=== PATIENT | male | born 1980 | race Caucasian/White ===

== ENCOUNTER 2017-11-06 12:45 | Inpatient (IN) | payer OTHER ==
[2017-11-06 14:31] VITALS: BMI 24.1
--- NOTE | 2017-11-06 19:26 | HP ---
COWS - Scale Resting Pulse: 0= OR 80 or Below Sweatin=Flushed/Facial Moisture Restless Observation: 3= Extraneous Movement Pupil Size: 2= Moderately Dilated Bone or Joint Aches: 4=Acute Joint/Muscle Pain Runny Nose/ Eye Tearin= None GI Upset > 30mins: 1= Stomach Cramp Tremor Observation: 0= None Yawning Observation: 0= None Anxiety or Irritability: 2=Irritable/Anxious Goose Flesh Skin: 0=Smooth Skin COWS Score: 14 CIWA Score - CIWA Score Nausea/Vomitin-No Nausea/No Vomiting Muscle Tremors: 3 Anxiety: 5 Agitation: 5 Paroxysmal Sweats: 1-Minimal Palms Moist Orientation: 0-Oriented Tacttile Disturbances: 0-None Auditory Disturbances: 0-None Visual Disturbances: 0-None Headache: 0-None Present CIWA-Ar Total Score: 14 Admission ROS S - [facility] Chief Complaint: HEROIN WITHDRAWAL SX Allergies/Adverse Reactions: Allergies Allergy/AdvReac Type Severity Reaction Status Date / Time No Known Allergies Allergy Verified 11/06/17 19:03 History of Present Illness: 37 Y/O H/MALE WITH A HX OF HEROIN AND XANAX DEPENDENCE SEEKING DETOX TX. TOXICOLOGY NEGATIVE FOR XANAX. [place] 0.018 BUT PT REPORTS HE DOES NOT DRINK AND IS SURPRISED AT [place] RESULT. PT HAS PREVIOUS TREATMENT EPISODES. PATIENT WAS ON [facility] TREATMENT PROGRAM BUT WAS DISCHARGED IN DUE TO NON COMPLIANCE. LAST RX POSTING WAS IN MARCH 2017. Exam Limitations: No Limitations, Clinical Condition - Ebola screening Have you traveled outside of the country in the last 21 days: No Have you had contact with anyone from an Ebola affected area: No Have you been sick,other than usual withdrawal symptoms: No Do you have a fever: No - Review of Systems Constitutional: Chills, Loss of Appetite, Night Sweats, Unintentional Wgt. Loss , Unexplained wgt Loss EENT: reports: Blurred Vision (DUE TO DRUG USE), Tearing, Nose Congestion, Dental Problems (CAVITIES/BROKEN FRONTAL BOTTOM/UPPER TEETH) Respiratory: reports: No Symptoms reported Cardiac: reports: Lightheadedness GI: reports: Constipated, Diarrhea, Nausea, Poor Appetite, Vomiting, Indigestion (HX GERD-PRILOSEC IN THE PAST.) : reports: No Symptoms Reported Musculoskeletal: reports: Back Pain, Joint Pain (ANKLES), Muscle Pain Integumentary: reports: Bruising (LEFT ELBOW DUE TO FALL/ BOTH INNER ELBOWS IVD INJ SITES) Neuro: reports: Headache, Numbness, Tingling, Unsteady Gait (IN THE PAST), Dizziness Endocrine: reports: No Symptoms Reported Hematology: reports: No Symptoms Reported Psychiatric: reports: Orientated x3, Anxious, Depressed Other Systems: Reviewed and Negative Patient History - Patient Medical History Hx Anemia: No Hx Asthma: No Hx Chronic Obstructive Pulmonary Disease (COPD): No Hx Cancer: No Hx Cardiac Disorders: No Hx Congestive Heart Failure: No Hx Hypertension: No Hx Hypercholesterolemia: No Hx Pacemaker: No HX Cerebrovascular Accident: No Hx Seizures: No Hx Dementia: No Hx Diabetes: No Hx Gastrointestinal Disorders: No Hx Liver Disease: No Hx Genitourinary Disorders: No Hx Sexually Transmitted Disorders: No Hx Renal Disease (ESRD): No Hx Thyroid Disease: No Hx Human Immunodeficiency Virus (HIV): Yes (since 2009; NO CURRENT MED) Hx Hepatitis C: Yes (since 2009) Hx Depression: No Hx Suicide Attempt: No (DENIES S/I) Hx Bipolar Disorder: No Hx Schizophrenia: No Other Medical History: I.D CLINIC: DR. CLAROS @ [address] - Patient Surgical History Past Surgical History: No Hx Neurologic Surgery: No Hx Cataract Extraction: No Hx Cardiac Surgery: No Hx Lung Surgery: No Hx Breast Surgery: No Hx Breast Biopsy: No Hx Abdominal Surgery: No Hx Appendectomy: No Hx Cholecystectomy: No Hx Genitourinary Surgery: No Hx Orthopedic Surgery: No Anesthesia Reaction: No - PPD History Previous Implant?: Yes (INH = vit b6 treatment in the past.) Documented Results: Positive w/o proof Implanted On Prior [facility] Admission?: No PPD to be Administered?: No - Reproductive History Patient is a Female of Child Bearing Age (11 -55 yrs old): No (male) - Smoking Cessation Smoking history: Current every day smoker Have you smoked in the past 12 months: Yes Aproximately how many cigarettes per day: 10 Hx Chewing Tobacco Use: No Initiated information on smoking cessation: Yes 'Breaking Loose' booklet given: 11/06/17 - Substance & Tx. History Hx Alcohol Use: No Hx Substance Use: Yes (heroin/xanax/marijuana/cocaine) Substance Use Type: Cocaine, Heroin, Marijuana - Substances Abused Alprazolam (Xanax) Route: Oral Frequency: Daily Amount used: 2/2MG Age of first use: 25 Date of Last Use: 11/06/17 Heroin Route: Injection Frequency: Daily Amount used: 5-8 BAGS Age of first use: 22 Date of Last Use: 11/06/17 Marijuana/Hashish Route: Smoking Frequency: Daily Amount used: $10 Age of first use: 14 Date of Last Use: 11/05/17 Family Disease History - Family Disease History Family Disease History: Diabetes: Grandparent (GM-DM;GF- FROM CANCER), CA: Grandparent, Other: Mother (HIV+ AND DEPRESSION- ) Admission Physical Exam [facility] - Vital Signs Vital Signs: Vital Signs - 24 hr 11/06/17 14:24 Temperature 97.3 F L Pulse Rate 59 L Respiratory 18 Rate Blood Pressure 107/71 - Physical General Appearance: Yes: Moderate Distress, Irritable, Anxious HEENTM: Yes: EOMI, Normocephalic, [place] Respiratory: Yes: Chest Non-Tender, Lungs Clear, Normal Breath Sounds, No Respiratory Distress Neck: Yes: Supple, Trachea in good position Breast: Yes: Breast Exam Deferred Cardiology: Yes: Regular Rhythm, Regular Rate, S1, S2 Abdominal: Yes: Normal Bowel Sounds, Non Tender, Soft Genitourinary: Yes: Other (N/C) Back: Yes: Within Normal Limits Musculoskeletal: Yes: full range of Motion, Gait Steady Extremities: Yes: Normal Range of Motion, Non-Tender Neurological: Yes: jewel hole cornerer II-XII NML intact, Fully Oriented, Alert, Motor Strength 5/5 Integumentary: Yes: Dry, Warm, Track [place] (BOTH ANTECUBITAL SPACES-HARDENED IVD INJECTION SITE WITH SLIGHT REDNESS.) Lymphatic: Yes: Within Normal Limits - Diagnostic (1) Opioid dependence with withdrawal Status: Acute (2) HIV (human immunodeficiency virus infection) Status: Chronic (3) History of hepatitis C Status: Chronic (4) Cannabis dependence, uncomplicated Status: Chronic (5) Cellulitis Status: Acute Qualifiers: Site of cellulitis of extremity: upper extremity Cleared for Admission [facility] - Detox or Rehab [facility] Level of Care: Medically Managed Detox Regimen/Protocol: Methadone S Breath Alcohol Content Breath Alcohol Content: 0.018 Urine Drug Screen - Results Drug Screen Negative: No Urine Drug Screen Results: THC-Marijuana, LIZABETH-Cocaine, OPI-Opiates, OXY- Oxycodone
[2017-11-06] MEDS ORDERED: LOPERAMIDE HCL 2 MG CAPSULE PO PRN (19:58)
[2017-11-06] MEDS ORDERED: MAG HYDROX/AL HYDROX/SIMETH 30 ML UNIT-DOSE CUP PO PRN (19:58)
[2017-11-06] MEDS ORDERED: ACETAMINOPHEN 325 MG TABLET (FP) PO PRN (19:58)
[2017-11-06] MEDS ORDERED: MENTHOL/PHENOL 1 EACH UD MM PRN (19:58)
[2017-11-06] MEDS ORDERED: P-EPHED 60MG/TRIPROLIDI 2.5MG TABLET PO PRN (19:58)
[2017-11-06] MEDS ORDERED: hydrOXYzine PAMOATE 50 MG CAPSULE (FP) PO PRN (19:58)
[2017-11-06] MEDS ORDERED: NICOTINE POLACRILEX 2 MG GUM BC PRN (19:58)
[2017-11-06] MEDS ORDERED: guaiFENesin/D-METHORPHAN HB 10 ML UNIT-DOSE CUPS PO PRN (19:58)
[2017-11-06] MEDS ORDERED: MAGNESIUM HYDROX 2400MG/30ML ORAL SUSPENSION 30 ML CUP PO PRN (19:58)
[2017-11-06] MEDS ORDERED: MAGNESIUM CITRATE 300 ML BOTTLE PO PRN (19:58)
[2017-11-06] MEDS ORDERED: IBUPROFEN 400 MG TABLET (FP) PO PRN (19:58)
[2017-11-06] MEDS ORDERED: METHADONE HCL 10 MG TABLET (FOR DETOX USE ONLY) PO ONE ×2 (21:00→23:00)
[2017-11-06] MEDS: diazePAM 5 MG TABLET PO PRN (21:41)
[2017-11-06] MEDS: NICOTINE 14 MG/24 HOURS TOPICAL PATCH TD SCH (21:41)
[2017-11-06] MEDS: THIAMINE HCL 100 MG TABLET (FP) PO SCH (21:43)
[2017-11-06] MEDS ORDERED: MELATONIN 5 MG TABLETS PO PRN (22:00)
[2017-11-07] MEDS ORDERED: METHADONE HCL 10 MG TABLET (FOR DETOX USE ONLY) PO ONE (10:00)
[2017-11-07 10:33] LABS: URINE APPEARANCE TURBID; URINE BILIRUBIN NEGATIVE (<2.0 mg/dL); URINE COLOR YELLOW; URINE GLUCOSE (UA) NEGATIVE (NEGATIVE); URINE KETONE TRACE (NEGATIVE); URINE LEUK ESTERASE NEGATIVE (NEGATIVE); URINE NITRITE NEGATIVE (NEGATIVE); URINE PROTEIN NEGATIVE (NEGATIVE); URINE UROBILINOGEN NEGATIVE mg/dL (0.2-1.0)
[2017-11-07 10:36] LABS: HEMATOCRIT 40.7 % (35.4-49); HEMOGLOBIN 13.8 GM/dL (11.7-16.9); MCH 29.6 pg (25.7-33.7); MEAN CELL VOLUME 87.1 fl (80-96); MEAN PLT VOLUME 8.6 fl (7.5-11.1); PLATELET COUNT 272 K/MM3 (134-434); RBC 4.67 M/mm3 (4.00-5.60); WHITE BLOOD COUNT 8.9 K/mm3 (4.0-10.0)
[2017-11-07] MEDS: BACITRACIN 0.9 GM PACKET TP SCH ×2 (10:43→21:05)
[2017-11-07] MEDS: PRENATAL VITAMINS W/ FOLIC ACID TABLET (FP) PO SCH (10:43)
[2017-11-07] MEDS: NICOTINE 14 MG/24 HOURS TOPICAL PATCH TD SCH (10:44)
[2017-11-07] MEDS: diazePAM 5 MG TABLET PO PRN ×2 (10:47→21:05)
[2017-11-07 11:17] LABS: CHLORIDE 105 mmol/L (98-107); POTASSIUM 4.3 mmol/L (3.5-5.1); SODIUM 140 mmol/L (136-145)
[2017-11-07 11:24] LABS: ALBUMIN 3.3 g/dl (3.4-5.0); ALK PHOS 216 U/L (45-117); ANION GAP 7 (8-16); BILIRUBIN,TOTAL 0.5 mg/dL (0.2-1.0); BLOOD UREA NITROGEN 10 mg/dL (7-18); CALCIUM 8.4 mg/dL (8.5-10.1); CO2 28 mmol/L (21-32); CREATININE 0.6 mg/dL (0.7-1.3); GLUCOSE,RANDOM 81 mg/dL (74-106); SGOT/AST 60 U/L (15-37); SGPT/ALT 68 U/L (12-78); TOT PROT 6.4 g/dl (6.4-8.2)
[2017-11-07 11:31] LABS: SICKLE CELL SCREEN NEGATIVE (NEGATIVE)
[2017-11-07] MEDS ORDERED: SULFAMETHOXAZOLE/TRIMETHOPRIM 800MG/160MG D.S. TABLET PO ONE (12:45)
--- NOTE | 2017-11-07 14:45 | PN ---
S CIWA - CIWA Score Nausea/Vomitin-No Nausea/No Vomiting Muscle Tremors: None Anxiety: 4-Mod. Anxious/Guarded Agitation: 2 Paroxysmal Sweats: 3 Orientation: 0-Oriented Tacttile Disturbances: 3-Moderate Itch/Numb/Burn Auditory Disturbances: 0-None Visual Disturbances: 3-Moderate Sensitivity Headache: 0-None Present CIWA-Ar Total Score: 15 BHS COWS - Scale Resting Pulse: 1= [place] 81-100 Sweatin= Chills/Flushing Restless Observation: 1= Difficult to Sit Still Pupil Size: 0= Normal to Room Light Bone or Joint Aches: 2= Severe Diffuse Aches Runny Nose/ Eye Tearin= Nasal Congestion GI Upset > 30mins: 0= None Tremor Observation of Outstretched Hands: 0= None Yawning Observation: 2= >3x During Session Anxiety or Irritability: 2=Irritable/Anxious Goose Flesh Skin: 3=Piloerection COWS Score: 13 S Progress Note (SOAP) Subjective: Body Aches, Sweating, Fatigue. Objective: PATIENT A & O X 3, OBSERVED AMBULATING ON UNIT. NO ACUTE DISTRESS. 11/07/17 14:46 Vital Signs Temperature 98.6 F 11/07/17 13:25 Pulse Rate 86 11/07/17 13:25 Respiratory Rate 16 11/07/17 13:25 Blood Pressure 149/89 11/07/17 13:25 O2 Sat by Pulse Oximetry (%) Laboratory Tests 11/07/17 11/07/17 11/07/17 08:00 08:00 08:00 WBC 8.9 RBC 4.67 Hgb 13.8 Hct 40.7 MCV 87.1 MCH 29.6 MCHC 34.0 RDW 14.0 Plt Count 272 MPV 8.6 Sickle Cell Screen Negative Sodium 140 Potassium 4.3 Chloride 105 Carbon Dioxide 28 Anion Gap 7 L BUN 10 Creatinine 0.6 L Creat Clearance w eGFR > 60 Random Glucose 81 D Calcium 8.4 L Total Bilirubin 0.5 AST 60 H D ALT 68 D Alkaline Phosphatase 216 H Total Protein 6.4 Albumin 3.3 L Urine Color Urine Appearance Urine pH Ur Specific [place] Urine Protein Urine Glucose (UA) Urine Ketones Urine Blood Urine Nitrite Urine Bilirubin Urine Urobilinogen Ur Leukocyte Esterase RPR Titer Nonreactive 11/07/17 08:30 WBC RBC Hgb Hct MCV MCH MCHC RDW Plt Count MPV Sickle Cell Screen Sodium Potassium Chloride Carbon Dioxide Anion Gap BUN Creatinine Creat Clearance w eGFR Random Glucose Calcium Total Bilirubin AST ALT Alkaline Phosphatase Total Protein Albumin Urine Color Yellow Urine Appearance Turbid Urine pH 5.0 Ur Specific [place] 1.029 Urine Protein Negative Urine Glucose (UA) Negative Urine Ketones Trace H Urine Blood Negative Urine Nitrite Negative Urine Bilirubin Negative Urine Urobilinogen Negative Ur Leukocyte Esterase Negative RPR Titer LABS NOTED. Assessment: 11/07/17 14:47 WITHDRAWAL SYMPTOMS. Plan: CONTINUE DETOX. INCREASE DAILY PO FLUID INTAKE. REPEAT ALKALINE PHOSPHATASE ON 11/09/2017 FOR ELEVATED ADMISSION LEVEL.
--- NOTE | 2017-11-07 17:26 | CONSULT ---
[facility] Psychiatric Consult - Data Date of interview: 11/07/17 Admission source: [facility] Identifying data: Readmission to [facility] for this 37 y/o male seeking detox treatment on for heroin,cannabis,xanax and cocaine dependence.Patient is single,a father of one,domiciled,unemployed and deprived of income. Substance Abuse History: Confirmed by the patient in this session.Smoking history: Current every day smoker. Have you smoked in the past 12 months: Yes. Aproximately how many cigarettes per day: 10. Hx Chewing Tobacco Use: No. Initiated information on smoking cessation: Yes. 'Breaking Loose' booklet given : 11/06/17. - Substance & Tx. History. Hx Alcohol Use: No. Hx Substance Use: Yes (heroin/xanax/marijuana/cocaine). Substance Use Type: Cocaine, Heroin, Marijuana. - Substances Abused. Alprazolam (Xanax). Route: Oral. Frequency: Daily. Amount used: 2/2MG. Age of first use: 25. Date of Last Use : 11/06/17. Heroin. Route: Injection. Frequency: Daily. Amount used: 5-8 BAGS. Age of first use: 22. Date of Last Use: 11/06/17. Marijuana/ Hashish. Route: Smoking. Frequency: Daily. Amount used: $10. Age of first use: 14. Date of Last Use: 11/05/17 Medical History: HIV infection since 2009,hepatitis C and past treatment with INH + B6 (positive PPD). Psychiatric History: Patient denies. Physical/Sexual Abuse/Trauma History: Declines to discuss this domain. Additional Comment: Urine Drug Screen Results: THC-Marijuana, LIZABETH-Cocaine, OPI- Opiates, OXY-Oxycodone.Noted. Mental Status Exam - Mental Status Exam Alert and Oriented to: Time, Place, Person Cognitive Function: Grossly Intact Patient Appearance: Unkempt, Disheveled Mood: Hostile, Nervous, Withdrawn, Irritable Affect: Mood Congruent Patient Behavior: Fatigued, Guarded Speech Pattern: Clear Voice Loudness: Normal Thought Process: Goal Oriented Thought Disorder: Not Present Hallucinations: Denies Suicidal Ideation: Denies Homicidal Ideation: Denies Insight/Judgement: Poor Sleep: Fair Appetite: Good Muscle strength/Tone: Normal Gait/Station: Normal Psychiatric Findings - Problem List ([place] 1, 2,3) (1) Opioid dependence with withdrawal Current Visit: Yes Status: Acute (2) Cannabis dependence, uncomplicated Current Visit: Yes Status: Acute (3) Cocaine dependence Current Visit: Yes Status: Acute (4) Nicotine dependence Current Visit: Yes Status: Acute (5) Substance induced mood disorder Current Visit: Yes Status: Acute - Initial Treatment Plan Initial Treatment Plan: Psychoeducation.Sleep hygiene.Detoxification.Patient reports sleeping fairly well on melatonin at bedtime.Made aware of side effects/ benefits.Agrees to careplan.Observation.
--- NOTE | 2017-11-07 19:00 | EKG ---
Test Reason : Blood Pressure : / mmHG Vent. Rate : 052 BPM Atrial Rate : 052 BPM P-R Int : 174 ms QRS Dur : 092 ms QT Int : 416 ms P-R-T Axes : 036 077 055 degrees QTc Int : 386 ms SINUS BRADYCARDIA OTHERWISE NORMAL ECG NO PREVIOUS ECGS AVAILABLE Confirmed by MD JOSE, LOKI ([id number]) on 11/07/2017 6:59:53 PM Referred By: Confirmed By:LOKI GARCIA MD
[2017-11-07] MEDS: SULFAMETHOXAZOLE/TRIMETHOPRIM 800MG/160MG D.S. TABLET PO SCH (21:05)
[2017-11-07] MEDS: THIAMINE HCL 100 MG TABLET (FP) PO SCH (21:06)
[2017-11-07] MEDS ORDERED: SULFAMETHOXAZOLE/TRIMETHOPRIM 800MG/160MG D.S. TABLET PO SCH (22:00)
[2017-11-08] MEDS ORDERED: METHADONE HCL 5 MG TABLET (FOR DETOX USE ONLY) PO ONE (10:00)
[2017-11-08] MEDS: SULFAMETHOXAZOLE/TRIMETHOPRIM 800MG/160MG D.S. TABLET PO SCH ×2 (10:09→22:40)
[2017-11-08] MEDS: BACITRACIN 0.9 GM PACKET TP SCH ×2 (10:09→22:39)
[2017-11-08] MEDS: PRENATAL VITAMINS W/ FOLIC ACID TABLET (FP) PO SCH (10:09)
[2017-11-08] MEDS: NICOTINE 14 MG/24 HOURS TOPICAL PATCH TD SCH (10:10)
[2017-11-08] MEDS: diazePAM 5 MG TABLET PO PRN ×3 (10:13→20:31)
--- NOTE | 2017-11-08 13:24 | PN ---
BHS COWS - Scale Resting Pulse: 0= IN 80 or Below Sweatin= Chills/Flushing Restless Observation: 3= Extraneous Movement Pupil Size: 1= Pupils >than Normal Bone or Joint Aches: 2= Severe Diffuse Aches Runny Nose/ Eye Tearin= Runny Nose/Eyes GI Upset > 30mins: 2= Nausea/Diarrhea Tremor Observation of Outstretched Hands: 2= Slight Tremor Visible Yawning Observation: 1= 1-2x During Session Anxiety or Irritability: 2=Irritable/Anxious Goose Flesh Skin: 0=Smooth Skin COWS Score: 16 BHS Progress Note (SOAP) Subjective: Nausea, poor appetite, body ache, feels sad (denies SI, HI) Objective: 11/08/17 13:21 Last Vital Signs Temp Pulse Resp BP Pulse Ox 97.9 F 50 L 16 104/67 11/08/17 09:27 11/08/17 09:27 11/08/17 09:27 11/08/17 09:27 Laboratory Tests 11/07/17 11/07/17 11/07/17 08:00 08:00 08:00 WBC 8.9 RBC 4.67 Hgb 13.8 Hct 40.7 MCV 87.1 MCH 29.6 MCHC 34.0 RDW 14.0 Plt Count 272 MPV 8.6 Sickle Cell Screen Negative Sodium 140 Potassium 4.3 Chloride 105 Carbon Dioxide 28 Anion Gap 7 L BUN 10 Creatinine 0.6 L Creat Clearance w eGFR > 60 Random Glucose 81 D Calcium 8.4 L Total Bilirubin 0.5 AST 60 H D ALT 68 D Alkaline Phosphatase 216 H Total Protein 6.4 Albumin 3.3 L Urine Color Urine Appearance Urine pH Ur Specific [place] Urine Protein Urine Glucose (UA) Urine Ketones Urine Blood Urine Nitrite Urine Bilirubin Urine Urobilinogen Ur Leukocyte Esterase RPR Titer Nonreactive 11/07/17 08:30 WBC RBC Hgb Hct MCV MCH MCHC RDW Plt Count MPV Sickle Cell Screen Sodium Potassium Chloride Carbon Dioxide Anion Gap BUN Creatinine Creat Clearance w eGFR Random Glucose Calcium Total Bilirubin AST ALT Alkaline Phosphatase Total Protein Albumin Urine Color Yellow Urine Appearance Turbid Urine pH 5.0 Ur Specific [place] 1.029 Urine Protein Negative Urine Glucose (UA) Negative Urine Ketones Trace H Urine Blood Negative Urine Nitrite Negative Urine Bilirubin Negative Urine Urobilinogen Negative Ur Leukocyte Esterase Negative RPR Titer Labs reviewed Assessment: 11/08/17 13:22 Withdrawal symptoms Plan: Continue detox Encouraged PO water hydration
[2017-11-08] MEDS: THIAMINE HCL 100 MG TABLET (FP) PO SCH (22:40)
[2017-11-09] MEDS: diazePAM 5 MG TABLET PO PRN ×2 (03:41→09:17)
[2017-11-09 09:29] VITALS: BP 114/78; PULSE 79; TEMP 99.1
[2017-11-09] MEDS ORDERED: METHADONE HCL 5 MG TABLET (FOR DETOX USE ONLY) PO ONE (10:00)
[2017-11-09] MEDS: BACITRACIN 0.9 GM PACKET TP SCH (10:24)
[2017-11-09] MEDS: PRENATAL VITAMINS W/ FOLIC ACID TABLET (FP) PO SCH (10:25)
[2017-11-09] MEDS: SULFAMETHOXAZOLE/TRIMETHOPRIM 800MG/160MG D.S. TABLET PO SCH (10:25)
[2017-11-09] MEDS: NICOTINE 14 MG/24 HOURS TOPICAL PATCH TD SCH (10:27)
--- NOTE | 2017-11-09 13:06 | PN ---
[facility] Progress Note Note: PT DECLINED TO CONTINUE WITH DETOX FOR PERSONAL REASONS. PT IS ALERT O X 3. NAD. PT WAS SPOKEN TO BY COUNSELOR PATRICIA ARANA AND THIS [employer]ILITY WORKER BUT PT STATES THAT HE WANTS TO LEAVE,REFUSED REFERRAL AND THAT HE WILL TAKE CARE OF HIS FUTURE PLANS FOR TREATMENT. Vital Signs 11/09/17 11/09/17 06:02 09:28 Temperature 98.0 F 99.1 F Pulse Rate 66 79 Respiratory 16 18 Rate Blood Pressure 109/71 114/78 Laboratory Tests 11/07/17 11/07/17 11/07/17 08:00 08:00 08:00 WBC 8.9 RBC 4.67 Hgb 13.8 Hct 40.7 MCV 87.1 MCH 29.6 MCHC 34.0 RDW 14.0 Plt Count 272 MPV 8.6 Sickle Cell Screen Negative Sodium 140 Potassium 4.3 Chloride 105 Carbon Dioxide 28 Anion Gap 7 L BUN 10 Creatinine 0.6 L Creat Clearance w eGFR > 60 Random Glucose 81 D Calcium 8.4 L Total Bilirubin 0.5 AST 60 H D ALT 68 D Alkaline Phosphatase 216 H Total Protein 6.4 Albumin 3.3 L Urine Color Urine Appearance Urine pH Ur Specific [place] Urine Protein Urine Glucose (UA) Urine Ketones Urine Blood Urine Nitrite Urine Bilirubin Urine Urobilinogen Ur Leukocyte Esterase RPR Titer Nonreactive 11/07/17 11/09/17 08:30 06:40 WBC RBC Hgb Hct MCV MCH MCHC RDW Plt Count MPV Sickle Cell Screen Sodium Potassium Chloride Carbon Dioxide Anion Gap BUN Creatinine Creat Clearance w eGFR Random Glucose Calcium Total Bilirubin AST ALT Alkaline Phosphatase 186 H D Total Protein Albumin Urine Color Yellow Urine Appearance Turbid Urine pH 5.0 Ur Specific [place] 1.029 Urine Protein Negative Urine Glucose (UA) Negative Urine Ketones Trace H Urine Blood Negative Urine Nitrite Negative Urine Bilirubin Negative Urine Urobilinogen Negative Ur Leukocyte Esterase Negative RPR Titer NAD PLAN:PT SIGNED OUT AMA FOLLOW UP WITH PMDR.ABDULLAH Scar AT [facility], [place] FOR MEDICAL MANAGEMENT OF COMORBID CONDITIONS.
--- NOTE | 2017-11-09 13:08 | DS ---
[facility] Detox Discharge Summary Admission Date: 11/06/17 Discharge Date: 11/09/17 - History Present History: Opioid Dependence Additional Comments: PT DECLINED TO CONTINUE WITH DETOX. Pertinent Past History: PLEASE SEE DX BELOW - Physical Exam Results Vital Signs: Vital Signs Temperature 99.1 F 11/09/17 09:28 Pulse Rate 79 11/09/17 09:28 Respiratory Rate 18 11/09/17 09:28 Blood Pressure 114/78 11/09/17 09:28 O2 Sat by Pulse Oximetry (%) Pertinent Admission Physical Exam Findings: WITHDRAWAL SX Laboratory Last Values WBC 8.9 K/mm3 (4.0-10.0) 11/07/17 08:00 RBC 4.67 M/mm3 (4.00-5.60) 11/07/17 08:00 Hgb 13.8 GM/dL (11.7-16.9) 11/07/17 08:00 Hct 40.7 % (35.4-49) 11/07/17 08:00 MCV 87.1 fl (80-96) 11/07/17 08:00 MCH 29.6 pg (25.7-33.7) 11/07/17 08:00 MCHC 34.0 g/dl (32.0-35.9) 11/07/17 08:00 RDW 14.0 % (11.9-15.9) 11/07/17 08:00 Plt Count 272 K/MM3 (134-434) 11/07/17 08:00 MPV 8.6 fl (7.5-11.1) 11/07/17 08:00 Sickle Cell Screen Negative (NEGATIVE) 11/07/17 08:00 Sodium 140 mmol/L (136-145) 11/07/17 08:00 Potassium 4.3 mmol/L (3.5-5.1) 11/07/17 08:00 Chloride 105 mmol/L (98-107) 11/07/17 08:00 Carbon Dioxide 28 mmol/L (21-32) 11/07/17 08:00 Anion Gap 7 (8-16) L 11/07/17 08:00 BUN 10 mg/dL (7-18) 11/07/17 08:00 Creatinine 0.6 mg/dL (0.7-1.3) L 11/07/17 08:00 Creat Clearance w eGFR > 60 (>60) 11/07/17 08:00 Random Glucose 81 mg/dL (74-106) D 11/07/17 08:00 Calcium 8.4 mg/dL (8.5-10.1) L 11/07/17 08:00 Total Bilirubin 0.5 mg/dL (0.2-1.0) 11/07/17 08:00 AST 60 U/L (15-37) H D 11/07/17 08:00 ALT 68 U/L (12-78) D 11/07/17 08:00 Alkaline Phosphatase 186 U/L (45-117) H D 11/09/17 06:40 Total Protein 6.4 g/dl (6.4-8.2) 11/07/17 08:00 Albumin 3.3 g/dl (3.4-5.0) L 11/07/17 08:00 Urine Color Yellow 11/07/17 08:30 Urine Appearance Turbid 11/07/17 08:30 Urine pH 5.0 (5.0-8.0) 11/07/17 08:30 Ur Specific [place] 1.029 (1.001-1.035) 11/07/17 08:30 Urine Protein Negative (NEGATIVE) 11/07/17 08:30 Urine Glucose (UA) Negative (NEGATIVE) 11/07/17 08:30 Urine Ketones Trace (NEGATIVE) H 11/07/17 08:30 Urine Blood Negative (NEGATIVE) 11/07/17 08:30 Urine Nitrite Negative (NEGATIVE) 11/07/17 08:30 Urine Bilirubin Negative (<2.0 mg/dL) 11/07/17 08:30 Urine Urobilinogen Negative mg/dL (0.2-1.0) 11/07/17 08:30 Ur Leukocyte Esterase Negative (NEGATIVE) 11/07/17 08:30 RPR Titer Nonreactive (NONREACTIVE) 11/07/17 08:00 - Treatment Hospital Course: Discharged Condition Good - Medication Discharge Medications: Ambulatory Orders NK [No Known Home Medication] 11/06/17 - Diagnosis (1) Opioid dependence with withdrawal Status: Acute (2) HIV (human immunodeficiency virus infection) Status: Chronic (3) History of hepatitis C Status: Chronic (4) Cannabis dependence, uncomplicated Status: Chronic (5) Cellulitis Status: Acute Qualifiers: Site of cellulitis of extremity: upper extremity - AMA Did Patient Leave Against Medical Advice: Yes (AMA)
[2017-11-10] MEDS ORDERED: METHADONE HCL 10 MG TABLET (FOR DETOX USE ONLY) PO ONE (10:00)
[2017-11-11] MEDS ORDERED: METHADONE HCL 5 MG TABLET (FOR DETOX USE ONLY) PO ONE (06:00)
== END 2017-11-09 11:28 | disposition left against medical advice (07) | DRG 770 ==
LOC: YASAS 12:45 → Y3N 20:30
PROVIDERS: ADMIT Surgery; ATTEND Surgery
PROC: HZ2ZZZZ Detoxification Services for Substance Abuse Treatment (ICD-10-PCS; principal; 2017-11-06)
DX: F11.23 Opioid dependence with withdrawal (principal); F14.20 Cocaine dependence, uncomplicated; F12.20 Cannabis dependence, uncomplicated; F17.210 Nicotine dependence, cigarettes, uncomplicated; F19.24 Other psychoactive substance dependence with psychoactive substance-induced mood disorder; Z21 Asymptomatic human immunodeficiency virus [HIV] infection status; B18.2 Chronic viral hepatitis C; L03.114 Cellulitis of left upper limb; L03.113 Cellulitis of right upper limb; Z59.0 Homelessness
CPT/HCPCS: 36415; 80053; 81003; 84075; 85027; 85660; 86593; 93005; 93010

== ENCOUNTER 2018-12-03 11:40 | Inpatient (IN) | payer OTHER | END 2018-12-08 13:40 | disposition other institution (70) | LOC: YASAS 11:40 → Y6N 16:28 ==

== ENCOUNTER 2018-12-08 13:49 | Inpatient (IN) | payer OTHER ==
--- NOTE | 2018-12-08 15:44 | PN ---
"[facility] Progress Note Note: patient is interested in starting suboxone, just transferred from detox and had methadone today. patient has been on suboxone in the past, his provider stopped prescribing suboxone because he has relapsed at least twice while he was on suboxone. His maintenance dose in the community was 24 mg. However, he is requesting to start on 2mg twice and day and wishes to try to stay on that dose if possible. He states that his provider would be willing to take him back into MAT with suboxone once he completes rehab and inpatient treatment. This report was requested by: Luz Culver | Reference #: [id number] There are no results for the search terms that you entered.[place] [facility] Dispensed in [place]. There are no results for the search terms that you entered. Prescriptions Dispensed in [place]. There are no results for the search terms that you entered. Prescriptions Dispensed in [place]. There are no results for the search terms that you entered. Prescriptions Dispensed in [place]. There are no results for the search terms that you entered. PE: General: no apparent distress, but reports feeling like he wants to jump out of skin HEENTM: normocephalic, PERRLA, poor dentition Lungs: clear Heart: s1 s2 audible Abd: +BS Neuro: Cn 2-12 intact; no neurological deficits noted. A/P: WD from heroin Will start suboxone 2mg BID tomorrow."
--- NOTE | 2018-12-09 00:15 | HP ---
[facility]IE [facility] Rehab Assess/Revision - Admission History Admitted to Rehab from: [address] - Vital signs Vital Signs: Vital Signs Period Temp Pulse Resp BP Sys/Mayorga Pulse Ox Last 24 Hr 98.1 F 75 18 117/71 - Findings Detox History & Physical reviewed: Yes Concur with findings: Yes Inpatient Rehab Admission - Rehab Decision to Admit Inpatient rehab admission?: Yes - Initial Determination Are CD services needed?: No Free of communicable disease: Yes Not in need of hospitalization: Yes - Rehab Admission Criteria Previous failed treatment: Yes Poor recovery environment: Yes Comorbidities: Yes Lacks judgement: No Patient is meeting Inpatient Rehab admission criteria:: Yes
[2018-12-09] MEDS ORDERED: guaiFENesin 200 MG/10 ML 10 ML UNIT-DOSE CUPS PO PRN ×2 (00:16→00:17)
[2018-12-09] MEDS ORDERED: MENTHOL/PHENOL 1 EACH UD MM PRN ×2 (00:16→00:17)
[2018-12-09] MEDS ORDERED: MAG HYDROX/AL HYDROX/SIMETH 30 ML UNIT-DOSE CUP PO PRN ×2 (00:16→00:17)
[2018-12-09] MEDS ORDERED: MAGNESIUM CITRATE 300 ML BOTTLE PO PRN ×2 (00:16→00:17)
[2018-12-09] MEDS ORDERED: MAGNESIUM HYDROX 2400MG/30ML ORAL SUSPENSION 30 ML CUP PO PRN ×2 (00:16→00:17)
[2018-12-09] MEDS ORDERED: P-EPHED 60MG/TRIPROLIDI 2.5MG TABLET PO PRN ×2 (00:16→00:17)
[2018-12-09] MEDS ORDERED: ACETAMINOPHEN 325 MG TABLET (FP) PO PRN ×2 (00:16→00:17)
[2018-12-09] MEDS ORDERED: IBUPROFEN 400 MG TABLET (FP) PO PRN ×2 (00:16→00:17)
[2018-12-09] MEDS ORDERED: LOPERAMIDE HCL 2 MG CAPSULE PO PRN ×2 (00:16→00:17)
[2018-12-09] MEDS ORDERED: PRENATAL VITAMINS W/ FOLIC ACID TABLET (FP) PO SCH (10:00)
[2018-12-09] MEDS ORDERED: ABACAVIR/DOLUTEGRAVIR/LAMIVUDI (TRIUMEQ) TABLET -NF PO SCH ×2 (10:00)
--- NOTE | 2018-12-09 10:00 | PN ---
BHS COWS - Scale Resting Pulse: 0= [place] 80 or Below Sweatin= Beads of Sweat on Face Restless Observation: 0= Sits Still Pupil Size: 1= Pupils >than Normal Bone or Joint Aches: 2= Severe Diffuse Aches Runny Nose/ Eye Tearin= Runny Nose/Eyes GI Upset > 30mins: 1= Stomach Cramp Tremor Observation of Outstretched Hands: 1= Tremor [place], Not Seen Yawning Observation: 0= None Anxiety or Irritability: 2=Irritable/Anxious Goose Flesh Skin: 0=Smooth Skin COWS Score: 12 BHS Progress Note (SOAP) Subjective: Patient requesting suboxone, recently transferred from detox. Has been on suboxone previously, last time > 1 year ago, but relapsed. See previous note by this provider. Objective: 12/09/18 09:57 Vital Signs Period Temp Pulse Resp BP Sys/[place] Pulse Ox Last 24 Hr 98.1 F 75 18-18 117/71 General: appears anxious HEENTM: normocephalic, poor dention Lungs: clear Heart: s1 s2 audible, regular Abd: +BS, soft, non-tender Neuro: CN 2-12 intact MSK: full ROM, steady gait. Lymph: non-palpable 12/09/18 10:08 12/09/18 10:09 URINE DRUG SCREEN RESULTS Urine Drug Screen Results THC-Marijuana Assessment: Active withdrawal from heroin 12/09/18 10:00 Plan: Will start suboxone 2mg BID. Counselors are aware that patient needs to have a referral to an aftercare program that provides Suboxone MAT. Need for aftercare referral for suboxone discussed with patient.
[2018-12-09] MEDS: PRENATAL VITAMINS W/ FOLIC ACID TABLET (FP) PO SCH (10:15)
[2018-12-09] MEDS: BUPRENORPHINE/NALOXONE 2 MG/0.5 MG FILM PACKET SL SCH ×2 (10:21→21:22)
[2018-12-09] MEDS ORDERED: ONDANSETRON 4 MG TABLET PO ONE (12:00)
[2018-12-09] MEDS ORDERED: ONDANSETRON *ODT* 4 MG TABLET SL ONE (12:00)
[2018-12-09] MEDS: SULFAMETHOXAZOLE/TRIMETHOPRIM 800MG/160MG D.S. TABLET PO SCH ×2 (14:02→21:22)
[2018-12-09] MEDS: PANTOPRAZOLE 40 MG TABLET (FP) PO SCH (14:02)
[2018-12-09] MEDS: THIAMINE HCL 100 MG TABLET (FP) PO SCH (21:22)
[2018-12-09] MEDS: MELATONIN 5 MG TABLETS PO PRN (21:23)
[2018-12-09] MEDS ORDERED: THIAMINE HCL 100 MG TABLET (FP) PO SCH (22:00)
[2018-12-09] MEDS ORDERED: MELATONIN 5 MG TABLETS PO PRN (22:00)
[2018-12-10] MEDS ORDERED: hydrOXYzine PAMOATE 25 MG CAPSULE (FP) PO ONE (00:22)
--- NOTE | 2018-12-10 00:26 | PN ---
S Progress Note Note: Patient reportsfeeling restless Vital Signs Temperature 98.1 F 12/08/18 13:45 Pulse Rate 75 12/08/18 13:45 Respiratory Rate 18 12/09/18 03:30 Blood Pressure 117/71 12/08/18 13:45 O2 Sat by Pulse Oximetry (%) Action: Trazodone HCL 50mg 1 tablet oral ordered Psych. consult ordered
[2018-12-10] MEDS ORDERED: traZODone HCL 50 MG TABLET (FP) PO ONE (01:22)
[2018-12-10] MEDS ORDERED: ABACAVIR/DOLUTEGRAVIR/LAMIVUDI (TRIUMEQ) TABLET -NF PO SCH (08:00)
[2018-12-10] MEDS: BUPRENORPHINE/NALOXONE 2 MG/0.5 MG FILM PACKET SL SCH ×2 (09:59→21:44)
[2018-12-10] MEDS: SULFAMETHOXAZOLE/TRIMETHOPRIM 800MG/160MG D.S. TABLET PO SCH ×2 (09:59→21:43)
[2018-12-10] MEDS: PRENATAL VITAMINS W/ FOLIC ACID TABLET (FP) PO SCH (09:59)
[2018-12-10] MEDS: PANTOPRAZOLE 40 MG TABLET (FP) PO SCH (09:59)
--- NOTE | 2018-12-10 12:05 | CONSULT ---
[facility] Psychiatric Consult - Data Date of interview: 12/10/18 Admission source: Transfer from [address] [place] [address] Identifying data: Readmission to [facility] for this 38 y/o male who completed detoxification treatment at [address] [place] [address] (heroin, cannabis, xanax, crystal methamphetamine, cocaine) priot [facility] sobriety. Patient is , a father of one, domiciled, unemployed and supported on SSI benefits. Substance Abuse History: Confirmed by patient in this session. Details in current [facility] report as follows : Smoking history: Current every day smoker. Have you smoked in the past 12 months: Yes. Aproximately how many cigarettes per day: 10. Hx Chewing Tobacco Use: No. Initiated information on smoking cessation: No. - Substance & Tx. History. Hx Alcohol Use: No. Substance Use Type: Cocaine, Heroin, Marijuana. Hx Substance Use Treatment: Yes. - Substances abused. Heroin. Substance route: Injection. Frequency: Daily. Amount used: 10 to 12 bags. Age of first use: 22. Date of last use: 12/03/18. Cocaine. Substance route: Injection. Frequency: 1-2 times per week. Amount used: 40 dollars= 1 gram. Age of first use: 14. Date of last use: 12/02. Alprazolam (Xanax). Substance route: Oral. Frequency: 1-2 times per week. Amount used: 2 of 2 mg. Age of first use: 25. Date of last use: Medical History: Remarkable for HIV infection since 2009 (on HAART medications) , hepatitis C and past treatment with INH + B6 (positive PPD). Psychiatric History: Patient admits to a history of multiple psychiatric hospitalizations ([facility] + [facility]-). First admission was at [facility] five years ago. Mr Shruthi reports the diagnosis of borderline personality disorder. Denies any contact with psychiatric OPD care providers. Denies history of suicide attempts. Physical/Sexual Abuse/Trauma History: Patient denies. Additional Comment: Urine drug screen results: THC-Marijuana, LIZABETH-Cocaine, MOP- Opiates, OXY-Oxycodone. Noted. Mental Status Exam - Mental Status Exam Alert and Oriented to: Time, Place, Person Cognitive Function: Good Patient Appearance: Well Groomed Mood: Hopeful Affect: Appropriate, Normal Range Patient Behavior: Cooperative Speech Pattern: Clear Voice Loudness: Normal Thought Process: Goal Oriented Hallucinations: Denies Suicidal Ideation: Denies Homicidal Ideation: Denies Insight/Judgement: Fair Sleep: Poorly, Difficulty falling asleep (wants trazodone) Appetite: Good Muscle strength/Tone: Normal Gait/Station: Normal Psychiatric Findings - Problem List ([place] 1, 2,3) (1) Opioid dependence Current Visit: Yes Status: Chronic (2) Cannabis dependence, uncomplicated Current Visit: Yes Status: Chronic (3) Cocaine dependence Current Visit: Yes Status: Chronic Qualifiers: Substance use status: uncomplicated Qualified Code(s): F14.20 - Cocaine dependence, uncomplicated (4) Nicotine dependence Current Visit: Yes Status: Chronic Qualifiers: Nicotine product type: unspecified (5) Substance induced mood disorder Current Visit: Yes Status: Chronic (6) Insomnia Current Visit: Yes Status: Chronic - Initial Treatment Plan Initial Treatment Plan: Psychoeducation. Support. Harm reduction. Teachings about relapse prevention (MAT). NA meetings. Observation.
[2018-12-10] MEDS: ABACAVIR/DOLUTEGRAVIR/LAMIVUDI (TRIUMEQ) TABLET -NF PO SCH (12:46)
[2018-12-10] MEDS: THIAMINE HCL 100 MG TABLET (FP) PO SCH (21:44)
[2018-12-10] MEDS: MELATONIN 5 MG TABLETS PO PRN (22:50)
[2018-12-11 06:59] VITALS: BP 125/88; PULSE 71; TEMP 98.1
[2018-12-11] MEDS: PANTOPRAZOLE 40 MG TABLET (FP) PO SCH (09:54)
[2018-12-11] MEDS: BUPRENORPHINE/NALOXONE 2 MG/0.5 MG FILM PACKET SL SCH (09:54)
[2018-12-11] MEDS: PRENATAL VITAMINS W/ FOLIC ACID TABLET (FP) PO SCH (09:54)
[2018-12-11] MEDS: SULFAMETHOXAZOLE/TRIMETHOPRIM 800MG/160MG D.S. TABLET PO SCH (09:54)
--- NOTE | 2018-12-11 11:56 | PN ---
JODIE Progress Note Note: Discharge Summary Patient Name: NICHOLAS ALMONTE Date of : 80 Patient Status: Inpatient Attending Provider: Dot Eagle Date: 12/11/18 11:53 Initialization Date: 12/11/18 11:53 Discharge Summary Admission Date: 12/08/18 Discharge Date: 12/11/18 - History Pertinent Past History: Hep C, HIV, started on suboxone 2mg BID on 12/09/18 - Physical Exam Results Vital Signs: Vital Signs Temperature 98.1 F 12/11/18 06:58 Pulse Rate 71 12/11/18 06:58 Respiratory Rate 18 12/11/18 06:58 Blood Pressure 125/88 12/11/18 06:58 O2 Sat by Pulse Oximetry (%) - Medication Discharge Medications: Ambulatory Orders Abacavir/Dolutegravir/Lamivudi [Triumeq 600-50-300 mg Tablet] 1 tablet PO DAILY 12/03/18 - Diagnosis (1) Cannabis dependence, uncomplicated Current Visit: Yes Status: Chronic (2) Nicotine dependence Current Visit: Yes Status: Chronic Qualifiers: Nicotine product type: unspecified (3) Opioid dependence Current Visit: Yes Status: Chronic (4) HIV (human immunodeficiency virus infection) Current Visit: No Status: Chronic Qualifiers: HIV symptom status: unspecified Qualified Code(s): B20 - Human immunodeficiency virus [HIV] disease (5) History of hepatitis C Current Visit: No Status: Chronic - AMA Did Patient Leave Against Medical Advice: Yes
[2018-12-11] MEDS: ABACAVIR/DOLUTEGRAVIR/LAMIVUDI (TRIUMEQ) TABLET -NF PO SCH (12:50)
== END 2018-12-11 13:12 | disposition home or self-care (01) | DRG 772 ==
LOC: YASAS 13:49 → Y3W 13:50
PROVIDERS: ADMIT Neuromusculoskeletal Medicine & OMM; ATTEND Neuromusculoskeletal Medicine & OMM
PROC: HZ42ZZZ Group Counseling for Substance Abuse Treatment, Cognitive-Behavioral (ICD-10-PCS; principal; 2018-12-08)
DX: F11.20 Opioid dependence, uncomplicated (principal); F14.20 Cocaine dependence, uncomplicated; F12.20 Cannabis dependence, uncomplicated; F17.210 Nicotine dependence, cigarettes, uncomplicated; F19.24 Other psychoactive substance dependence with psychoactive substance-induced mood disorder; Z21 Asymptomatic human immunodeficiency virus [HIV] infection status; G47.00 Insomnia, unspecified; B18.2 Chronic viral hepatitis C

== ENCOUNTER 2019-05-31 14:48 | Inpatient (IN) | payer OTHER ==
--- NOTE | 2019-05-31 16:52 | BHS.RME ---
Substance Use & Tx History - Last Treatment Where was last treatment: Detox COWS - Scale Resting Pulse: 1= [place] 81-100 Sweatin=Flushed/Facial Moisture Restless Observation: 0= Sits Still Pupil Size: 0= Normal to Room Light Bone or Joint Aches: 2= Severe Diffuse Aches Runny Nose/ Eye Tearin= Nasal Congestion GI Upset > 30mins: 2= Nausea/Diarrhea (diarrhea x 2) Tremor Observation: 1= Tremor [place], Not Seen Yawning Observation: 1= 1-2x During Session Anxiety or Irritability: 2=Irritable/Anxious Goose Flesh Skin: 3=Piloerection COWS Score: 15 CIWA Nausea/Vomitin-Mild Nausea/No Vomiting Muscle Tremors: 3 Anxiety: 3 Agitation: 3 Paroxysmal Sweats: 3 Orientation: 1-Uncertain about Date Tacttile Disturbances: 0-None Auditory Disturbances: 0-None Visual Disturbances: 0-None Headache: 3-Moderate CIWA-Ar Total Score: 17
[2019-05-31 17:23] VITALS: BMI 26.1
--- NOTE | 2019-05-31 17:42 | HP ---
COWS - Scale Resting Pulse: 1= [place] 81-100 Sweatin=Flushed/Facial Moisture Restless Observation: 0= Sits Still Pupil Size: 0= Normal to Room Light Bone or Joint Aches: 2= Severe Diffuse Aches Runny Nose/ Eye Tearin= Nasal Congestion GI Upset > 30mins: 2= Nausea/Diarrhea (diarrhea x 2) Tremor Observation: 1= Tremor [place], Not Seen Yawning Observation: 1= 1-2x During Session Anxiety or Irritability: 2=Irritable/Anxious Goose Flesh Skin: 3=Piloerection COWS Score: 15 CIWA Score Nausea/Vomitin-Mild Nausea/No Vomiting Muscle Tremors: 3 Anxiety: 3 Agitation: 3 Paroxysmal Sweats: 3 Orientation: 1-Uncertain about Date Tacttile Disturbances: 0-None Auditory Disturbances: 0-None Visual Disturbances: 0-None Headache: 3-Moderate CIWA-Ar Total Score: 17 - Admission Criteria OASAS Guidelines: Admission for Medically Managed Detox: Requires at least one of the followin. CIWA greater than 12 2. Seizures within the past 24 hours 3. Delirium tremens within the past 24 hours 4. Hallucinations within the past 24 hours 5. Acute intervention needed for co occurring medical disorder 6. Acute intervention needed for co occurring psychiatric disorder 7. Severe withdrawal that cannot be handled at a lower level of care (continued vomiting, continued diarrhea, abnormal vital signs) requiring intravenous medication and/or fluids 8. Admitting History and Physical - Primary Care Physician PCP: wanda evans - Admission Chief Complaint: 39 year old male here at [facility] for help in stoping using heroind and xanax and he is madated by court system in [facility] for a program. History of Present Illness: 39 year old male with history of HIV presented to [facility] for help in stop using heroin and xanax and he is mandated by court system in [facility] for a program. feel hot and cold , watery eyes , back pain , diarrhea and ankle and knee pains , body ache denies any fever , chills, N/V/C denies any chest pain or abdominal pain , denies any pain when he pass urine. last visit in November 2018 from to 18 and then 3 days rehab PMHx: HIV , PSHX: none Allergies : NKDA FHX: None Social: disabled due to HIV virus , has for last years lives in [place] , single. has a girl friend. Smoke cigaret 1ppd for 25 years , started at age of 14 Alcohol none drugs: heroin and xanax 1- heroin 10-6 bags a day IV, started at age 22 , last use yesterday at 3 am. 2- Xanax 4 days week , 6 mg aday, last use today at 6 am, start using it at age of 25 PE: Head: NC/AT , feel anxious ENT: KIM, EOMI, constricted pupils Lungs: CTA B/L Abdomen: Soft, ND, NT , normal BS Neuro: no focal deficit Legs: +2 DP, no edema psych: cooperative Skin: skin injection markers on medical aspect of both arms. legal: next court day June 05 , but he does not have to appear as long as he is in rehab. 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 No: Cirrhosis, Cholelithiasis, Cholecystitis, Choledocholithiasis, Hepatitis A, Hepatitis B, Other Renal/: No: Renal Failure, Renal Inusuff, BPH, Cancer, Hematuria, Hemodialysis, Neurogenic Bladder, Renal Calculi, UTI, Other Psych: Yes: Anxiety, Other (borderline personality disorder self mediated with heroin Knee pain self medicated with heroin) Endocrine: No: Srinivas's Disease, Caldwell's Disease, Diabetes Insipidus, Diabetes Mellitus, Hyperparathyroidism, Hyperthyroidism, Hypothyroidism, Osteopenia, SIADH, Other Dermatology: Yes: Other (skin alea injection.) - Past Surgical History Past Surgical History: Yes: None - Smoking History Smoking history: Current every day smoker Have you smoked in the past 12 months: Yes Aproximately how many cigarettes per day: 20 - Alcohol/Substance Use Hx Alcohol Use: No - Social History Usual Living Arrangement: Yes: Alone (has girl frind use condomes) History of Recent Travel: No Admission ROS [facility] Allergies/Adverse Reactions: Allergies Allergy/AdvReac Type Severity Reaction Status Date / Time No Known Allergies Allergy Verified 05/31/19 17:15 Exam Limitations: No Limitations - Ebola screening Have you traveled outside of the country in the last 21 days: No Have you had contact with anyone from an Ebola affected area: No Have you been sick,other than usual withdrawal symptoms: No Do you have a fever: No - Review of Systems Constitutional: No Symptoms Reported EENT: reports: Tearing, Other (yawning). denies: Hearing Loss Respiratory: reports: No Symptoms reported Cardiac: reports: No Symptoms Reported GI: reports: Diarrhea, Nausea, Other : reports: No Symptoms Reported Musculoskeletal: reports: Other (skin injection markers) Integumentary: reports: No Symptoms Reported Neuro: denies: Headache, Numbness, Paresthesia, Weakness Endocrine: reports: No Symptoms Reported. denies: Change in Weight Hematology: denies: Blood Clots, Easy Bleeding, Easy Bruising Psychiatric: reports: other (border line personality disorder) Patient History - Patient Medical History Hx Anemia: No Hx Asthma: No Hx Chronic Obstructive Pulmonary Disease (COPD): No Hx Cancer: No Hx Cardiac Disorders: No Hx Congestive Heart Failure: No Hx Hypertension: No Hx Hypercholesterolemia: No Hx Pacemaker: No HX Cerebrovascular Accident: No Hx Seizures: No Hx Dementia: No Hx Diabetes: No Hx Gastrointestinal Disorders: No Hx Liver Disease: No Hx Genitourinary Disorders: No Hx Sexually Transmitted Disorders: No Hx Renal Disease (ESRD): No Hx Thyroid Disease: No Hx Human Immunodeficiency Virus (HIV): Yes (since 2009; on medication) Hx Hepatitis C: Yes (since 2009) Hx Depression: No Hx Suicide Attempt: No Hx Bipolar Disorder: No Hx Schizophrenia: No - Patient Surgical History Past Surgical History: No Hx Neurologic Surgery: No Hx Cataract Extraction: No Hx Cardiac Surgery: No Hx Lung Surgery: No Hx Breast Surgery: No Hx Breast Biopsy: No Hx Abdominal Surgery: No Hx Appendectomy: No Hx Cholecystectomy: No Hx Genitourinary Surgery: No Hx Section: No Hx Orthopedic Surgery: No Anesthesia Reaction: No - Reproductive History Patient : No - Smoking Cessation Smoking history: Current every day smoker Have you smoked in the past 12 months: Yes Aproximately how many cigarettes per day: 10 (10-20 cig/day ) Hx Chewing Tobacco Use: No Initiated information on smoking cessation: Yes 'Breaking Loose' booklet given: 05/31/19 - Substance & Tx. History Hx Alcohol Use: No Hx Substance Use: Yes Substance Use Type: Heroin Hx Substance Use Treatment: Yes - Substances abused Heroin Substance route: Injection Frequency: Daily Amount used: 6 to 10 bags Age of first use: 22 Date of last use: 05/31/19 Alprazolam (Xanax) Substance route: Oral Frequency: 3-6 times per week Amount used: 4 to 6 mg Age of first use: 25 Date of last use: 05/31/19 Admission Physical Exam [facility] - Vital Signs Vital Signs: Vital Signs - 24 hr 05/31/19 17:18 Temperature 97.9 F Pulse Rate 90 Respiratory 18 Rate Blood Pressure 117/82 - Physical General Appearance: Yes: Within Normal Limits HEENTM: Yes: EOMI, Hearing grossly Normal, [place], Other (constricted pupils) Respiratory: Yes: Lungs Clear Neck: Yes: Supple Breast: Yes: Breast Exam Deferred Cardiology: Yes: Regular Rate Abdominal: Yes: Normal Bowel Sounds, Non Tender, Flat, Soft Back: No: CVA Tenderness Musculoskeletal: Yes: full range of Motion Extremities: Yes: Normal Capillary Refill, Other (B/l mdcial arm injection markers) Neurological: Yes: Fully Oriented, Alert, Motor Strength 5/5 - Diagnostic (1) Heroin addiction Current Visit: Yes Status: Acute (2) HIV (human immunodeficiency virus infection) Current Visit: Yes Status: Chronic Qualifiers: HIV symptom status: unspecified Qualified Code(s): B20 - Human immunodeficiency virus [HIV] disease (3) History of hepatitis C Current Visit: No Status: Chronic (4) Nicotine dependence Current Visit: Yes Status: Chronic Qualifiers: Nicotine product type: unspecified (5) Opioid dependence Current Visit: Yes Status: Chronic (6) GERD (gastroesophageal reflux disease) Current Visit: Yes Status: Acute Cleared for Admission [facility] - Detox or Rehab [facility] Level of Care: Medically Managed Detox Regimen/Protocol: Methadone/Valium Claeared for Rehab Admission: No Breathalyzer - Breathalyzer Breathalyzer: 0 Urine Drug Screen - Test Device Lot number: [id number] Expiration date: 02/19/21 - Control Is test valid?: Yes - Results Drug screen NEGATIVE: No Urine drug screen results: FEN-Fentanyl, MOP-Opiates, BZO-Benzodiazepines Inpatient Rehab Admission - Rehab Decision to Admit Inpatient rehab admission?: No
[2019-05-31] MEDS ORDERED: MAG HYDROX/AL HYDROX/SIMETH 30 ML UNIT-DOSE CUP PO PRN (18:00)
[2019-05-31] MEDS ORDERED: hydrOXYzine PAMOATE 25 MG CAPSULE (FP) PO PRN (18:00)
[2019-05-31] MEDS ORDERED: cloNIDine HCL 0.1 MG TABLET PO PRN (18:00)
[2019-05-31] MEDS ORDERED: ACETAMINOPHEN 325 MG TABLET (FP) PO PRN ×2 (18:00)
[2019-05-31] MEDS ORDERED: IBUPROFEN 400 MG TABLET (FP) PO PRN (18:00)
[2019-05-31] MEDS ORDERED: MENTHOL/PHENOL 1 EACH UD MM PRN (18:00)
[2019-05-31] MEDS ORDERED: MAGNESIUM HYDROX 2400MG/30ML ORAL SUSPENSION 30 ML CUP PO PRN (18:00)
[2019-05-31] MEDS ORDERED: NALOXONE HCL 0.4 MG/ML VIAL IM PRN (18:00)
[2019-05-31] MEDS ORDERED: BISMUTH SUBSALICYLATE 524 MG/30 ML UD PO PRN (18:00)
[2019-05-31] MEDS ORDERED: NICOTINE POLACRILEX 4 MG GUM BUC PRN (18:00)
[2019-05-31] MEDS ORDERED: METHOCARBAMOL 500 MG TABLET PO PRN (18:00)
[2019-05-31] MEDS ORDERED: NICOTINE POLACRILEX 2 MG GUM BUC PRN (18:00)
[2019-05-31] MEDS ORDERED: MAGNESIUM CITRATE 300 ML BOTTLE PO PRN (18:00)
[2019-05-31] MEDS ORDERED: METHADONE HCL 10 MG TABLET (FOR DETOX USE ONLY) PO ONE (18:30)
[2019-05-31] MEDS ORDERED: ONDANSETRON *ODT* 4 MG TABLET SL ONE (18:30)
[2019-05-31] MEDS: PANTOPRAZOLE 20 MG TABLET PO SCH (19:33)
[2019-05-31] MEDS: diazePAM 5 MG TABLET PO PRN (19:37)
[2019-05-31] MEDS: THIAMINE HCL 100 MG TABLET (FP) PO SCH (22:38)
[2019-05-31] MEDS: MELATONIN 5 MG TABLETS PO SCH (22:38)
[2019-05-31] MEDS: diazePAM 5 MG TABLET PO SCH (22:38)
[2019-06-01] MEDS: diazePAM 5 MG TABLET PO SCH ×3 (06:17→22:43)
[2019-06-01] MEDS ORDERED: METHADONE HCL 10 MG TABLET (FOR DETOX USE ONLY) ONE (09:17)
[2019-06-01] MEDS ORDERED: METHADONE HCL 5 MG TABLET (FOR DETOX USE ONLY) ONE (09:18)
[2019-06-01] MEDS ORDERED: METHADONE (DETOX) 20 MG, METHADONE (DETOX) 5 MG PO ONE (10:00)
[2019-06-01] MEDS: diazePAM 5 MG TABLET PO PRN (10:15)
[2019-06-01] MEDS: PATIENT'S OWN MEDICATION (NON-FORMULARY) (Abacavir/Dolutegravir/Lamivudi [Triumeq 600-50-3 PO SCH (10:16)
[2019-06-01] MEDS: NICOTINE 21 MG/24 HOURS TOPICAL PATCH TD SCH (10:17)
[2019-06-01] MEDS: PRENATAL VITAMINS W/ FOLIC ACID TABLET (FP) PO SCH (10:17)
[2019-06-01] MEDS: PANTOPRAZOLE 20 MG TABLET PO SCH (10:17)
[2019-06-01 10:20] LABS: HEMOGLOBIN 14.3 GM/dL (11.7-16.9); MCH 29.2 pg (25.7-33.7); MCHC 33.2 g/dl (32.0-35.9); MEAN CELL VOLUME 87.7 fl (80-96); MEAN PLT VOLUME 8.7 fl (7.5-11.1); PLATELET COUNT 261 K/MM3 (134-434); WHITE BLOOD COUNT 6.5 K/mm3 (4.0-10.0)
[2019-06-01 10:35] LABS: ALBUMIN 3.1 g/dl (3.4-5.0); BILIRUBIN,TOTAL 0.4 mg/dL (0.2-1); BLOOD UREA NITROGEN 12.6 mg/dL (7-18); CALCIUM 8.2 mg/dL (8.5-10.1); CREATININE 0.6 mg/dL (0.55-1.3); POTASSIUM 4.2 mmol/L (3.5-5.1); TOT PROT 6.6 g/dl (6.4-8.2)
--- NOTE | 2019-06-01 11:04 | PN ---
[facility] CIWA - CIWA Score Nausea/Vomitin-Mild Nausea/No Vomiting Muscle Tremors: 2 Anxiety: 1-Mildly Anxious Agitation: 1-Slight > Activity Paroxysmal Sweats: No Perspiration Orientation: 0-Oriented Tacttile Disturbances: 0-None Auditory Disturbances: 0-None Visual Disturbances: 0-None Headache: 1-Very Mild CIWA-Ar Total Score: 6 BHS COWS - Scale Resting Pulse: 1= [place] 81-100 Sweatin= Chills/Flushing Restless Observation: 1= Difficult to Sit Still Pupil Size: 0= Normal to Room Light Bone or Joint Aches: 1= Mild Discomfort Runny Nose/ Eye Tearin= Nasal Congestion GI Upset > 30mins: 1= Stomach Cramp Tremor Observation of Outstretched Hands: 1= Tremor [place], Not Seen Yawning Observation: 1= 1-2x During Session Anxiety or Irritability: 1=Feels Anxious/Irritable Goose Flesh Skin: 0=Smooth Skin COWS Score: 9 [facility] Progress Note (SOAP) Subjective: pt admitted yesterday for detox from opiates and benzo. No complaints today O: Vital Signs - 24 hr 05/31/19 05/31/19 06/01/19 17:18 21:15 00:34 Temperature 97.9 F 98.0 F Pulse Rate 90 64 Respiratory 18 16 16 Rate Blood Pressure 117/82 103/63 06/01/19 06/01/19 06/01/19 03:25 06:57 08:45 Temperature 97.3 F L 97.4 F L Pulse Rate 51 L 73 Respiratory 16 18 18 Rate Blood Pressure 101/60 116/83 Laboratory Tests 06/01/19 06/01/19 07:10 07:10 WBC 6.5 RBC 4.90 Hgb 14.3 Hct 43.0 MCV 87.7 MCH 29.2 MCHC 33.2 RDW 14.0 Plt Count 261 MPV 8.7 Sodium 139 Potassium 4.2 Chloride 105 Carbon Dioxide 28 Anion Gap 6 L BUN 12.6 Creatinine 0.6 Est GFR (CKD-EPI)AfAm 146.79 Est GFR (CKD-EPI)NonAf 126.65 Random Glucose 91 Calcium 8.2 L Total Bilirubin 0.4 AST 28 ALT 53 Alkaline Phosphatase 164 H Total Protein 6.6 Albumin 3.1 L a/p: OUD continue heroin detox protocol Benzo use disorder- continue detox protocol HIV pos- continue ARV
--- NOTE | 2019-06-01 13:37 | CONSULT ---
[facility] Psychiatric Consult - Data Date of interview: 06/01/19 Admission source: [facility] Identifying data: Readmission to [address] [place] [address] for this 39 [address]- mandated for [facility]YLER treatment. Admitted for detoxification. TYLER issues : heroin, xanax, nicotine. Patient is , a father of one, domiciled, unemployed and supported on SSI benefits. Substance Abuse History: Discussed with the patient. TYLER profile as follows : Smoking history: Current every day smoker. Have you smoked in the past 12 months: Yes. Aproximately how many cigarettes per day: 10 (10-20 cig/day ). Hx Chewing Tobacco Use: No. Initiated information on smoking cessation: Yes. 'Breaking Loose' booklet given: 05/31/19. - Substance & Tx. History. Hx Alcohol Use: No. Hx Substance Use: Yes. Substance Use Type: Heroin. Hx Substance Use Treatment: Yes. - Substances abused. Heroin. Substance route: Injection. Frequency: Daily. Amount used: 6 to 10 bags. Age of first use: 22. Date of last use: 05/31/19. Alprazolam (Xanax). Substance route: Oral. Frequency: 3-6 times per week. Amount used: 4 to 6 mg. Age of first use: 25. Date of last use: 05/31/19 Medical History: Medical history is remarkable for HIV infection since 2009 (on HAART medications), hepatitis C and past treatment with INH + B6 (positive PPD). Psychiatric History: In this interview, the patient denies having a psychiatric history, antecedent of OPD care or suicide attempts. Mr Hawkins is a hostile and irritable historian. Records at [facility] show a profile of multiple psychiatric hospitalizations ([facility] + [facility]-). Onset of emotional disturbances started 5-7 years ago. Diagnosis of Borderline Personality Disorder. No contact with psychiatric OPD care providers. No reported history of suicide attempts. Physical/Sexual Abuse/Trauma History: Patient denies. Additional Comment: Urine drug screen results: FEN-Fentanyl, MOP-Opiates, BZO- Benzodiazepines. Noted. Mental Status Exam - Mental Status Exam Alert and Oriented to: Time, Place, Person Cognitive Function: Good Patient Appearance: Unkempt, Disheveled Mood: Nervous, Withdrawn, Irritable Affect: Mood Congruent, Constricted Patient Behavior: Fatigued, Cooperative (superficially cooperative) Speech Pattern: Clear Voice Loudness: Normal Thought Process: Goal Oriented Thought Disorder: Not Present Hallucinations: Denies Suicidal Ideation: Denies Homicidal Ideation: Denies Insight/Judgement: Poor Sleep: Poorly, Difficulty falling asleep Appetite: Good Gait/Station: Other (not observed. In bed all morning long) Psychiatric Findings - Problem List ([place] 1, 2,3) (1) Opioid dependence with withdrawal Current Visit: Yes Status: Acute (2) Benzodiazepine dependence Current Visit: Yes Status: Chronic (3) Nicotine dependence Current Visit: Yes Status: Chronic Qualifiers: Nicotine product type: unspecified (4) Substance induced mood disorder Current Visit: Yes Status: Chronic (5) Insomnia Current Visit: Yes Status: Chronic - Initial Treatment Plan Initial Treatment Plan: Psychoeducation. Sleep hygiene. Detoxification in progress. NA meetings. Observation.
[2019-06-01] MEDS: MELATONIN 5 MG TABLETS PO SCH (22:44)
[2019-06-01] MEDS: THIAMINE HCL 100 MG TABLET (FP) PO SCH (22:45)
[2019-06-02] MEDS ORDERED: diazePAM 5 MG TABLET PO SCH (06:00)
--- NOTE | 2019-06-02 09:44 | PN ---
S CIWA - CIWA Score Nausea/Vomitin-No Nausea/No Vomiting Muscle Tremors: 2 Anxiety: 1-Mildly Anxious Agitation: 0-Normal Activity Paroxysmal Sweats: 2 Orientation: 0-Oriented Tacttile Disturbances: 0-None Auditory Disturbances: 0-None Visual Disturbances: 0-None Headache: 0-None Present CIWA-Ar Total Score: 5 S COWS - Scale Resting Pulse: 0= [place] 80 or Below Sweatin= Chills/Flushing Restless Observation: 0= Sits Still Pupil Size: 1= Pupils >than Normal Bone or Joint Aches: 0= None Runny Nose/ Eye Tearin= None GI Upset > 30mins: 0= None Tremor Observation of Outstretched Hands: 2= Slight Tremor Visible Yawning Observation: 0= None Anxiety or Irritability: 1=Feels Anxious/Irritable Goose Flesh Skin: 0=Smooth Skin COWS Score: 5 S Progress Note (SOAP) Subjective: 39 years old male admitted on 05/31/19 for benzo and opiate withdrawal sx management treating with valium and methadone detox regiments feeling tired resting in bed encourage the patient to discuss aftercare with the counselor and attend behavior therapy groups and meetings Objective: 06/02/19 09:45 Vital Signs Temperature 96.4 F L 06/02/19 08:36 Pulse Rate 73 06/02/19 08:36 Respiratory Rate 16 06/02/19 08:36 Blood Pressure 143/79 06/02/19 08:36 O2 Sat by Pulse Oximetry (%) Laboratory Last Values WBC 6.5 K/mm3 (4.0-10.0) 06/01/19 07:10 RBC 4.90 M/mm3 (4.00-5.60) 06/01/19 07:10 Hgb 14.3 GM/dL (11.7-16.9) 06/01/19 07:10 Hct 43.0 % (35.4-49) 06/01/19 07:10 MCV 87.7 fl (80-96) 06/01/19 07:10 MCH 29.2 pg (25.7-33.7) 06/01/19 07:10 MCHC 33.2 g/dl (32.0-35.9) 06/01/19 07:10 RDW 14.0 % (11.9-15.9) 06/01/19 07:10 Plt Count 261 K/MM3 (134-434) 06/01/19 07:10 MPV 8.7 fl (7.5-11.1) 06/01/19 07:10 Sodium 139 mmol/L (136-145) 06/01/19 07:10 Potassium 4.2 mmol/L (3.5-5.1) 06/01/19 07:10 Chloride 105 mmol/L (98-107) 06/01/19 07:10 Carbon Dioxide 28 mmol/L (21-32) 06/01/19 07:10 Anion Gap 6 MMOL/L (8-16) L 06/01/19 07:10 BUN 12.6 mg/dL (7-18) 06/01/19 07:10 Creatinine 0.6 mg/dL (0.55-1.3) 06/01/19 07:10 Est GFR (CKD-EPI)AfAm 146.79 06/01/19 07:10 Est GFR (CKD-EPI)NonAf 126.65 06/01/19 07:10 Random Glucose 91 mg/dL (74-106) 06/01/19 07:10 Calcium 8.2 mg/dL (8.5-10.1) L 06/01/19 07:10 Total Bilirubin 0.4 mg/dL (0.2-1) 06/01/19 07:10 AST 28 U/L (15-37) 06/01/19 07:10 ALT 53 U/L (13-61) 06/01/19 07:10 Alkaline Phosphatase 164 U/L (45-117) H 06/01/19 07:10 Total Protein 6.6 g/dl (6.4-8.2) 06/01/19 07:10 Albumin 3.1 g/dl (3.4-5.0) L 06/01/19 07:10 RPR Titer Nonreactive (NONREACTIVE) 06/01/19 07:10 lab noted Assessment: 06/02/19 09:46 benzo and opiate withdrawal Plan: valium and methadone regiments
[2019-06-02] MEDS ORDERED: METHADONE HCL 10 MG TABLET (FOR DETOX USE ONLY) PO ONE (10:00)
[2019-06-02] MEDS: PRENATAL VITAMINS W/ FOLIC ACID TABLET (FP) PO SCH (10:55)
[2019-06-02] MEDS: PANTOPRAZOLE 20 MG TABLET PO SCH (10:55)
[2019-06-02] MEDS: NICOTINE 21 MG/24 HOURS TOPICAL PATCH TD SCH (10:56)
[2019-06-02] MEDS: PATIENT'S OWN MEDICATION (NON-FORMULARY) (Abacavir/Dolutegravir/Lamivudi [Triumeq 600-50-3 PO SCH (10:56)
[2019-06-02] MEDS: diazePAM 5 MG TABLET PO PRN (10:58)
[2019-06-02 14:03] VITALS: BP 133/73; PULSE 85; TEMP 97.8
--- NOTE | 2019-06-02 15:04 | DS ---
[facility] Detox Discharge Summary Admission Date: 05/31/19 Discharge Date: 06/02/19 - History Present History: Opioid Dependence, Sedative Dependence Additional Comments: 39 years old male admitted on 05/31/19 for benzo and opiate withdrawal sx management treated with valium and methadone detox regiments Mr Hawkins insists to leave the detox today refuses to discuss reasoning nor alternative Mr Hawkins is alert oriented x 3 speech clearly coherently steady gait denies suicidal homocidal ideation respiratory clear lungs bilaterally on auscultation abdomen soft no rebound tenderness extremities full range of motion Patient Name: Charlie Hawkins Date: 1980 Address: [address] [place] [address] Sex: Male Rx Written Rx Dispensed Drug Quantity Days Supply Prescriber Name Payment Method Dispenser zolpidem tartrate 10 mg tablet 30 30 Ariel Bender MD Insurance [facility] zolpidem tartrate 10 mg tablet 30 30 Ariel Bender MD Insurance [facility] zolpidem tartrate 10 mg tablet 30 30 Ariel Bender MD Insurance [facility] zolpidem tartrate 10 mg tablet 30 30 Ariel Bender MD Insurance [facility] buprenorphine-naloxone 4-1 mg sl film 7 7 Yumiko Gerber Insurance [facility] zolpidem tartrate 10 mg tablet 30 30 Ariel Bender MD Insurance [facility] buprenorphine-naloxone 4-1 mg sl film 7 7 Yumiko Gerber Insurance 3 [facility] zolpidem tartrate 10 mg tablet 30 30 Ariel Bender MD Insurance 3 [facility] zolpidem tartrate 10 mg tablet 30 30 Ariel Bender MD Insurance 3 [facility] zolpidem tartrate 10 mg tablet 30 30 Ariel Bender MD Insurance [facility] zolpidem tartrate 10 mg tablet 30 30 Ariel Bender MD Insurance [facility] zolpidem tartrate 10 mg tablet 30 30 Ariel Bender MD Insurance 3 [facility] zolpidem tartrate 10 mg tablet 30 30 Ariel Bender MD Insurance 3 [facility] zolpidem tartrate 10 mg tablet 30 30 Ariel Bender MD Insurance 3 [facility] Pertinent Past History: time for discharge 47 minutes patient prefers to continue Ambien for sleep at home patient may return to infectious disease primary care provider for medical and mental issues - Physical Exam Results Vital Signs: Vital Signs Temperature 97.8 F 06/02/19 12:46 Pulse Rate 85 06/02/19 12:46 Respiratory Rate 18 06/02/19 12:46 Blood Pressure 133/73 06/02/19 12:46 O2 Sat by Pulse Oximetry (%) Pertinent Admission Physical Exam Findings: benzo and opiate withdrawal Vital Signs Temperature 97.8 F 06/02/19 12:46 Pulse Rate 85 06/02/19 12:46 Respiratory Rate 18 06/02/19 12:46 Blood Pressure 133/73 06/02/19 12:46 O2 Sat by Pulse Oximetry (%) Laboratory Last Values WBC 6.5 K/mm3 (4.0-10.0) 06/01/19 07:10 RBC 4.90 M/mm3 (4.00-5.60) 06/01/19 07:10 Hgb 14.3 GM/dL (11.7-16.9) 06/01/19 07:10 Hct 43.0 % (35.4-49) 06/01/19 07:10 MCV 87.7 fl (80-96) 06/01/19 07:10 MCH 29.2 pg (25.7-33.7) 06/01/19 07:10 MCHC 33.2 g/dl (32.0-35.9) 06/01/19 07:10 RDW 14.0 % (11.9-15.9) 06/01/19 07:10 Plt Count 261 K/MM3 (134-434) 06/01/19 07:10 MPV 8.7 fl (7.5-11.1) 06/01/19 07:10 Sodium 139 mmol/L (136-145) 06/01/19 07:10 Potassium 4.2 mmol/L (3.5-5.1) 06/01/19 07:10 Chloride 105 mmol/L (98-107) 06/01/19 07:10 Carbon Dioxide 28 mmol/L (21-32) 06/01/19 07:10 Anion Gap 6 MMOL/L (8-16) L 06/01/19 07:10 BUN 12.6 mg/dL (7-18) 06/01/19 07:10 Creatinine 0.6 mg/dL (0.55-1.3) 06/01/19 07:10 Est GFR (CKD-EPI)AfAm 146.79 06/01/19 07:10 Est GFR (CKD-EPI)NonAf 126.65 06/01/19 07:10 Random Glucose 91 mg/dL (74-106) 06/01/19 07:10 Calcium 8.2 mg/dL (8.5-10.1) L 06/01/19 07:10 Total Bilirubin 0.4 mg/dL (0.2-1) 06/01/19 07:10 AST 28 U/L (15-37) 06/01/19 07:10 ALT 53 U/L (13-61) 06/01/19 07:10 Alkaline Phosphatase 164 U/L (45-117) H 06/01/19 07:10 Total Protein 6.6 g/dl (6.4-8.2) 06/01/19 07:10 Albumin 3.1 g/dl (3.4-5.0) L 06/01/19 07:10 RPR Titer Nonreactive (NONREACTIVE) 06/01/19 07:10 lab noted - Treatment Hospital Course: Detox Protocol Followed, Detoxed Safely, Responded well, Discharged Condition Good, Rehab Referral Accepted Patient has Accepted a Rehab Referral to: community support NA - Medication Discharge Medications: Ambulatory Orders Abacavir/Dolutegravir/Lamivudi [Triumeq 600-50-300 mg Tablet] 1 tablet PO DAILY #30 tablet 12/11/18 - Diagnosis (1) GERD (gastroesophageal reflux disease) Status: Chronic Qualifiers: Esophagitis presence: without esophagitis Qualified Code(s): K21.9 - Gastro-esophageal reflux disease without esophagitis (2) Opioid dependence with withdrawal Status: Acute (3) Benzodiazepine dependence Status: Acute (4) HIV (human immunodeficiency virus infection) Status: Chronic Qualifiers: HIV symptom status: asymptomatic Qualified Code(s): Z21 - Asymptomatic human immunodeficiency virus [HIV] infection status (5) History of hepatitis C Status: Chronic (6) Nicotine dependence Status: Acute Qualifiers: Nicotine product type: cigarettes Substance use status: in withdrawal Qualified Code(s): F17.213 - Nicotine dependence, cigarettes, with withdrawal (7) Substance induced mood disorder Status: Suspected - AMA Did Patient Leave Against Medical Advice: No CIWA Score - CIWA Score Nausea/Vomitin-No Nausea/No Vomiting Muscle Tremors: 2 Anxiety: 0-No Anxiety, at Ease Agitation: 0-Normal Activity Paroxysmal Sweats: 1-Minimal Palms Moist Orientation: 0-Oriented Tacttile Disturbances: 0-None Auditory Disturbances: 0-None Visual Disturbances: 0-None Headache: 0-None Present CIWA-Ar Total Score: 3 COWS (PN) - Opiate Withdrawal Resting Pulse: 1= AK 81-100 Sweatin= No chills or Flushing Restless Observation: 0= Sits Still Pupil Size: 0= Normal to Room Light Bone or Joint Aches: 1= Mild Discomfort Runny Nose/ Eye Tearin= None GI Upset > 30mins: 0= None Tremor Observation of Outstretched Hands: 1= Tremor Caroleen, Not Seen Yawning Observation: 0= None Anxiety or Irritability: 1=Feels Anxious/Irritable Goose Flesh Skin: 0=Smooth Skin COWS Score: 4
[2019-06-03] MEDS ORDERED: diazePAM 5 MG TABLET PO ONE (06:00)
[2019-06-03] MEDS ORDERED: METHADONE (DETOX) 10 MG, METHADONE (DETOX) 5 MG PO ONE (10:00)
[2019-06-04] MEDS ORDERED: METHADONE HCL 10 MG TABLET (FOR DETOX USE ONLY) PO ONE (10:00)
[2019-06-05] MEDS ORDERED: METHADONE HCL 5 MG TABLET (FOR DETOX USE ONLY) PO ONE (06:00)
== END 2019-06-02 14:24 | disposition home or self-care (01) | DRG 773 ==
LOC: YASAS 14:48 → Y3N 17:31
PROVIDERS: ADMIT Allergy & Immunology; ATTEND Allergy & Immunology
PROC: HZ2ZZZZ Detoxification Services for Substance Abuse Treatment (ICD-10-PCS; principal; 2019-05-31)
DX: F11.23 Opioid dependence with withdrawal (principal); F13.230 Sedative, hypnotic or anxiolytic dependence with withdrawal, uncomplicated; F17.210 Nicotine dependence, cigarettes, uncomplicated; F19.24 Other psychoactive substance dependence with psychoactive substance-induced mood disorder; F60.3 Borderline personality disorder; F41.9 Anxiety disorder, unspecified; Z21 Asymptomatic human immunodeficiency virus [HIV] infection status; K21.9 Gastro-esophageal reflux disease without esophagitis; B18.2 Chronic viral hepatitis C; R19.7 Diarrhea, unspecified; R76.11 Nonspecific reaction to tuberculin skin test without active tuberculosis; Z56.0 Unemployment, unspecified
CPT/HCPCS: 36415; 80053; 85027; 86593; Q0162

== ENCOUNTER 2020-05-18 12:21 | Inpatient (IN) | payer OTHER ==
[2020-05-18 18:01] VITALS: BMI 25.0
[2020-05-18] MEDS ORDERED: cloNIDine HCL 0.1 MG TABLET PO PRN (19:19)
[2020-05-18] MEDS ORDERED: MAGNESIUM HYDROX 2400MG/30ML ORAL SUSPENSION 30 ML CUP PO PRN (19:19)
[2020-05-18] MEDS ORDERED: NICOTINE POLACRILEX 2 MG GUM BUC PRN (19:19)
[2020-05-18] MEDS ORDERED: IBUPROFEN 400 MG TABLET (FP) PO PRN (19:19)
[2020-05-18] MEDS ORDERED: guaiFENesin 200 MG/10 ML 10 ML UNIT-DOSE CUPS PO PRN (19:19)
[2020-05-18] MEDS ORDERED: MENTHOL/PHENOL 1 EACH UD MM PRN (19:19)
[2020-05-18] MEDS ORDERED: BISMUTH SUBSALICYLATE 524 MG/30 ML UD PO PRN (19:19)
[2020-05-18] MEDS ORDERED: MAG HYDROX/AL HYDROX/SIMETH 30 ML UNIT-DOSE CUP PO PRN (19:19)
[2020-05-18] MEDS ORDERED: ACETAMINOPHEN 325 MG TABLET (FP) PO PRN ×2 (19:19)
[2020-05-18] MEDS ORDERED: MAGNESIUM CITRATE 300 ML BOTTLE PO PRN (19:19)
[2020-05-18] MEDS ORDERED: IBUPROFEN 600 MG TABLET (FP) PO PRN (20:14)
[2020-05-18] MEDS: MELATONIN 5 MG TABLETS PO SCH (21:10)
[2020-05-18] MEDS: THIAMINE HCL 100 MG TABLET (FP) PO SCH (21:10)
[2020-05-18] MEDS ORDERED: METHADONE HCL 10 MG TABLET (FOR DETOX USE ONLY) PO ONE (22:00)
[2020-05-19] MEDS ORDERED: METHADONE HCL 10 MG TABLET (FOR DETOX USE ONLY) ONE (09:38)
[2020-05-19] MEDS ORDERED: METHADONE HCL 5 MG TABLET (FOR DETOX USE ONLY) ONE (09:38)
[2020-05-19] MEDS ORDERED: METHADONE (DETOX) 20 MG, METHADONE (DETOX) 5 MG PO ONE (10:00)
[2020-05-19] MEDS: PANTOPRAZOLE 40 MG TABLET PO SCH (10:51)
[2020-05-19] MEDS: PRENATAL VITAMINS W/ FOLIC ACID TABLET (FP) PO SCH (10:51)
[2020-05-19] MEDS: NICOTINE 21 MG/24 HOURS TOPICAL PATCH TD SCH (10:51)
[2020-05-19 11:21] LABS: MCH 28.4 pg (25.7-33.7); MCHC 33.3 g/dl (32.0-35.9); MEAN CELL VOLUME 85.3 fl (80-96); MEAN PLT VOLUME 8.6 fl (7.5-11.1); PLATELET COUNT 274 K/MM3 (134-434); RBC 4.92 M/mm3 (4.00-5.60); RDW 14.8 % (11.9-15.9); WHITE BLOOD COUNT 7.6 K/mm3 (4.0-10.0)
[2020-05-19 11:50] LABS: POTASSIUM 4.2 mmol/L (3.5-5.1)
[2020-05-19 11:53] LABS: CALCIUM 9.3 mg/dL (8.5-10.1)
[2020-05-19 11:54] LABS: ALBUMIN 3.5 g/dl (3.4-5.0); BLOOD UREA NITROGEN 10.5 mg/dL (7-18)
[2020-05-19 11:57] LABS: CREATININE 0.6 mg/dL (0.55-1.3)
[2020-05-19 11:58] LABS: BILIRUBIN,TOTAL 0.7 mg/dL (0.2-1); TOT PROT 7.2 g/dl (6.4-8.2)
[2020-05-19] MEDS: MELATONIN 5 MG TABLETS PO SCH (23:21)
[2020-05-19] MEDS: THIAMINE HCL 100 MG TABLET (FP) PO SCH (23:21)
[2020-05-20] MEDS: METHOCARBAMOL 500 MG TABLET PO PRN ×3 (06:27→22:09)
[2020-05-20] MEDS: PANTOPRAZOLE 40 MG TABLET PO SCH (09:03)
[2020-05-20] MEDS: PRENATAL VITAMINS W/ FOLIC ACID TABLET (FP) PO SCH (09:03)
[2020-05-20] MEDS: NICOTINE 21 MG/24 HOURS TOPICAL PATCH TD SCH (09:04)
[2020-05-20] MEDS ORDERED: METHADONE HCL 10 MG TABLET (FOR DETOX USE ONLY) PO ONE (10:00)
[2020-05-20] MEDS ORDERED: hydrOXYzine PAMOATE 50 MG CAPSULE (FP) PO PRN (15:59)
[2020-05-20] MEDS: MELATONIN 5 MG TABLETS PO SCH (22:08)
[2020-05-20] MEDS: THIAMINE HCL 100 MG TABLET (FP) PO SCH (22:10)
[2020-05-20] MEDS: ONDANSETRON *ODT* 4 MG TABLET SL PRN (23:21)
[2020-05-21] MEDS ORDERED: METHADONE HCL 5 MG TABLET (FOR DETOX USE ONLY) ONE (09:33)
[2020-05-21] MEDS ORDERED: METHADONE HCL 10 MG TABLET (FOR DETOX USE ONLY) ONE (09:33)
[2020-05-21] MEDS ORDERED: METHADONE (DETOX) 10 MG, METHADONE (DETOX) 5 MG PO ONE (10:00)
[2020-05-21] MEDS: NICOTINE 21 MG/24 HOURS TOPICAL PATCH TD SCH (10:15)
[2020-05-21] MEDS: ONDANSETRON *ODT* 4 MG TABLET SL PRN ×2 (11:04→22:06)
[2020-05-21] MEDS: PRENATAL VITAMINS W/ FOLIC ACID TABLET (FP) PO SCH (11:42)
[2020-05-21] MEDS: diazePAM 5 MG TABLET PO PRN ×2 (12:12→20:25)
[2020-05-21] MEDS: PANTOPRAZOLE 40 MG TABLET PO SCH ×2 (12:12→15:45)
[2020-05-21] MEDS: ELVITEG/COB/EMTRI/TENOF (GENVOYA) TABLET (NF) PO SCH (12:13)
[2020-05-21] MEDS: METHOCARBAMOL 500 MG TABLET PO PRN (17:15)
[2020-05-21] MEDS: THIAMINE HCL 100 MG TABLET (FP) PO SCH (22:04)
[2020-05-21] MEDS: MELATONIN 5 MG TABLETS PO SCH (22:04)
[2020-05-22] MEDS: NICOTINE 21 MG/24 HOURS TOPICAL PATCH TD SCH (09:23)
[2020-05-22] MEDS: PRENATAL VITAMINS W/ FOLIC ACID TABLET (FP) PO SCH (09:25)
[2020-05-22 09:59] VITALS: BP 121/79; PULSE 90; TEMP 97.8
[2020-05-22] MEDS ORDERED: METHADONE HCL 10 MG TABLET (FOR DETOX USE ONLY) PO ONE (10:00)
[2020-05-22] MEDS: PANTOPRAZOLE 40 MG TABLET PO SCH (11:30)
[2020-05-22] MEDS: METHOCARBAMOL 500 MG TABLET PO PRN (11:30)
[2020-05-22] MEDS: ELVITEG/COB/EMTRI/TENOF (GENVOYA) TABLET (NF) PO SCH (11:30)
[2020-05-23] MEDS ORDERED: METHADONE HCL 5 MG TABLET (FOR DETOX USE ONLY) PO ONE (06:00)
== END 2020-05-22 16:32 | disposition home or self-care (01) | DRG 773 ==
LOC: YASAS 12:21 → Y6N 19:37
PROVIDERS: ADMIT Allergy & Immunology; ATTEND Allergy & Immunology
PROC: HZ2ZZZZ Detoxification Services for Substance Abuse Treatment (ICD-10-PCS; principal; 2020-05-18)
DX: F11.23 Opioid dependence with withdrawal (principal); F14.20 Cocaine dependence, uncomplicated; F12.20 Cannabis dependence, uncomplicated; F17.210 Nicotine dependence, cigarettes, uncomplicated; F60.3 Borderline personality disorder; Z21 Asymptomatic human immunodeficiency virus [HIV] infection status; B18.2 Chronic viral hepatitis C; Z86.11 Personal history of tuberculosis; R76.11 Nonspecific reaction to tuberculin skin test without active tuberculosis
CPT/HCPCS: 36415; 80053; 85027; 86780; 93005; 93010; C9803; J0735; Q0162; U0003